=== PATIENT | female | born 1995 | race Two or more races ===

== ENCOUNTER → 2025-09-06 | Outpatient (CLI) | payer BC, MEDICAID, SELFPAY ==
--- NOTE | 2025-09-06 10:24 | XR_ITS ---
Examination: OB Transvaginal ultrasound of the pelvis, complete Technique: Transvaginal sonographic images pelvis performed using slade scale imaging Exam date and time: September 06, 2025, 1102 hours INDICATIONS: Vaginal bleeding today FINDINGS: Uterus 11.6 cm, pole 2.2 cm corresponds to 8 weeks 6 days gestational age. Cardiac motion 166 bpm. Right ovary 2.5 cm arterial flow 10 mm follicle Left ovary 2.6 cm arterial flow IMPRESSION: Viable intrauterine gestation 8 weeks 6 days, no subchorionic hemorrhage.
== END | disposition home or self-care (01) ==
LOC: CDIM 10:03
PROVIDERS: Referring Provider Obstetrics & Gynecology; Visit Provider Obstetrics & Gynecology
DX: O20.0 Threatened abortion (principal); Z3A.08 8 weeks gestation of pregnancy
CPT/HCPCS: 76817